=== PATIENT | male | born 1995 | race Caucasian/White ===

== ENCOUNTER 2021-12-15 13:06 | Emergency (ER) | payer SELFPAY ==
[~2021-12-15] VITALS: Ht 175.3 cm; Wt 65.8 kg
[2021-12-15 13:21] VITALS: BP 130/80
--- NOTE | 2021-12-15 13:23 | NUR ---
FOOD AND WATER PROVIDED. PT STATES DOES NOT WANT TO BE SEEN AND WALKED OUT OF ER.
--- NOTE | 2021-12-15 13:24 | NUR ---
PATIENT ELOPED FROM FACILITY. DISCHARGE INSTRUCTIONS NOT GIVEN TO PATIENT. DR. LACKEY NOTIFIED.
--- NOTE | 2021-12-15 13:24 | NUR ---
PATIENT LEFT WITHOUT BEING SEEN BY DR. LACKEY. NO FURTHER CARE PROVIDED FOR PATIENT.
== END 2021-12-15 13:24 | disposition left against medical advice (07) ==
LOC: MED 13:06
DX: R63.8 Other symptoms and signs concerning food and fluid intake (principal); Z53.21 Procedure and treatment not carried out due to patient leaving prior to being seen by health care provider